=== PATIENT | female | born 1970 | race Caucasian/White ===

== ENCOUNTER 2017-09-28 13:06 | Emergency (ER) | payer SELFPAY ==
[2017-09-28 13:06] VITALS: BP 107/47; PULSE 76; RESP 16; TEMP 36.5; BMI 24.3
[2017-09-28 14:11] VITALS: BP 107/47; PULSE 76; RESP 18; TEMP 36.5; O2SAT 99; BMI 24.3
--- NOTE | 2017-09-28 14:13 | XR_ITS ---
XR wrist RT min 3V HISTORY: Wrist pain ITS.REASON: WC-NO INJURY/PAIN ORDERING PHYSICIAN: Josseline Quinn PATIENT AGE: 47 years COMPARISON: None FINDINGS: No fracture or dislocation. No lytic or blastic change. There is normal mineralization.. The joint spaces are well-preserved. No significant degenerative/arthritic changes. No erosive changes evident.. IMPRESSION: Negative wrist
--- NOTE | 2017-09-28 14:44 | HMH.EDUTC ---
[facility] [place] Impression: Right wrist sprain Qualifiers: Encounter type: initial encounter Qualified Code(s): S63.501A - Unspecified sprain of right wrist, initial encounter Disposition: Home, Self-Care Condition on Discharge: Good Instructions: DI for Wrist Sprain Additional Instructions: * move as tolerated but no lifting, pulling, pushing. See work restrictions * Rest * ice 15-20 mins 3-4 times a day * wrist splint for support and swelling unless in shower. Be sure not too tight but not too loose either * Elevate as discussed as much as possible to help reduce swelling and therefore, pain * Ibuprofen every 6 hours as needed for pain and inflammation. If you need something more, you can take tylenol every 4 hours as needed as long as your primary care provider has told you it is ok to take both. Need to follow up with primary care in 3-5 days for reevaluation of pain, mobility and work restrictions. we have provided you with a list of providers accepting patients. I would encourage you find a new primary care provider and make an appt ALBERT as it can take weeks to get a new patient appointment. In the meantime, follow up in the clinic or ER for new, worsening or persistent symptoms. Time of Disposition: 15:39 (see workman's comp restrictions/form) Medical Decision Making Vital Signs: 09/28/17 13:06 09/28/17 14:11 Temperature 97.7 F 97.7 F Temperature Source Oral Temporal Artery Scan Pulse Rate [Left Brachial] 76 76 Respiratory Rate 16 18 Blood Pressure [Left Arm] 107/47 107/47 Blood Pressure Mean [Left Arm] 67 67 Blood Pressure Source [Left Arm] Automatic Cuff Manual Cuff/ Doppler Blood Pressure Position [Left Arm] Sitting Sitting 02 Sat by Pulse Oximetry 99 Oxygen Delivery Method Room Air - Radiology Data #1 Image(s): Wrist Image Reviewed: Yes I reviewed the patient's radiology image w/the ED provider Preliminary Findings: Normal/NAD Rvwd w/ Dr. sena Gaitan Inquiry Pt receiving controlled substance: No [facility] [place] - General Stated complaint: WC [id number] right wrist Time Seen by Provider: 09/28/17 14:44 Mode of Arrival: Family Vehicle Source of Information: Patient Limitations: No Limitations Description of Symptoms (Recalled from Triage Doc. by RN): pt states that she noticed a bruise on her right wrist yesterday at work. pt does not recall what happened. HEENT Symptoms (Recalled from RN notes): No Resp Symptoms (Recalled from RN notes): No Skin Symptoms (Recalled from RN notes): No MS Symptoms (Recalled from RN notes): Yes (right wrist) Functional Status (Recalled from RN notes): na - History of Present Illness Provider Complaint: c/o right wrist pain. Doesn't know how it happened. Noticed bruise to right posterior wrist yesterday soon after getting to work. Didn't think anything of it. Always hitting it on something or getting a bruise somewhere . throughout the shift, pain started and by 2am, had to leave because no longer able to work through pain. Last night when pain severe, barely able to hold pack of smokes . pain improved right now and full ROM all fingers. No treatment but doesn't think she can work tonight due to pain still present. - Worker's Comp Is this a Worker's Comp case?: No H History I have reviewed the patient's past medical history: Yes (denies PMHx) Medical History: Denies:: Cancer, Diabetes Mellitus Type 1, Diabetes Mellitus Type 2, MRSA Amputation: No Fractures: No - Social History Smoking Status: Current every day smoker Tobacco Type: cigarettes Alcohol Intake: never - Psychiatric History Expresses thoughts of harming self/others: None Suicide Plan Description: No Plan ROS Obtained: Yes Systems reviewed as appropriate & no additional complaints - Constitutional Constitutional: Denies fatigue, Denies fever(s) - Musculoskeletal Musculoskeletal: Reports as per HPI, Denies joint swelling, Denies muscle cramps, Reports radiating pain into l
[2017-09-28 15:41] VITALS: BP 105/87; PULSE 74; RESP 18; TEMP 36.6; O2SAT 99
== END 2017-09-28 15:44 | disposition home or self-care (01) ==
PROVIDERS: Emergency Provider Nurse Practitioner Family
DX: S63.501A Unspecified sprain of right wrist, initial encounter (principal); F17.210 Nicotine dependence, cigarettes, uncomplicated
CPT/HCPCS: 73110; 99202

== ENCOUNTER 2017-10-28 20:06 | Emergency (ER) | payer OTHER, SELFPAY ==
[2017-10-28 20:24] VITALS: BP 125/65; PULSE 89; RESP 20; TEMP 37.2; O2SAT 98; BMI 23.8
--- NOTE | 2017-10-28 20:44 | HMH.EDUTC ---
[facility] [place] Disposition Clinical Impression: Foot injury Qualifiers: Encounter type: subsequent encounter Laterality: left Qualified Code(s): S99.922D - Unspecified injury of left foot, subsequent encounter Disposition: Home, Self-Care Condition on Discharge: Good Instructions: Easy Bruising (Alternative Therapy), DI for Foot Pain Additional Instructions: Follow up with Orthopedic as advised Return if needed *RICE, Rest the extremity, Ice 15-20 minutes 3-4 times daily, Compress- wear the roc wrap as discussed as much as possible to help reduce swelling and pain, Elevate the extremity when at rest *Roc wrap is for support and help control swelling, use it except in the shower. Be sure that is not to tight but not to loose either *Elevate when resting *Ibuprofen 600-800mg every 6-8 hours as needed for pain an inflammation. If need something more can take Tylenol in between doses of Ibuprofen to help Immediately follow up for new or worsening of symptoms, or no noticeable improvement over the next 3-5 days Referrals: Dusty Salcido MD [Staff Physician] - Renee Coronado DPM [Physician] - Edmar Arvizu MD [Staff Physician] - Time of Disposition: 21:14 Medical Decision Making - Medical Records Medical records reviewed: Yes: I reviewed the patient's medical records. - Arnie Inquiry Pt receiving controlled substance: No Arnie was queried for this patient: No Vital Signs: 10/28/17 20:24 Temperature 99 F Temperature Source Temporal Artery Scan Pulse Rate [Right] 89 Respiratory Rate 20 Blood Pressure [Right Arm] 125/65 Blood Pressure Mean [Right Arm] 85 Blood Pressure Source [Right Arm] Automatic Cuff Blood Pressure Position [Right Arm] Sitting 02 Sat by Pulse Oximetry 98 Oxygen Delivery Method Room Air - Reevaluation(s) Time: 21:07 Reevaluation #1: Patient educated that she needed to follow up with Orhtopedics as previously informed Advised her that we was unable to look at disk but would repeat xray so that we could look at her foot/injury Patient refused states that she was concerned where she just had xray done earlier today that insurance wouldn't cover it and she would be responsible that she was just worried where she had to wait to Tuesday to be seen by Orthopedics. Patient foot roc wrapped and patient was given other names to local Orthopedic Physicians to call to see if they would be able to see her sooner Again offered to repeat xray and patient refused [facility] [place] HPI - General Stated complaint: WC [id number] @1930 Injured L Foot Time Seen by Provider: 10/28/17 20:35 Mode of Arrival: Ambulatory Source of Information: Patient Limitations: No Limitations Description of Symptoms (Recalled from Triage Doc. by RN): LEFT FOOT INJURY , WANTS XRAYS READ HEENT Symptoms (Recalled from RN notes): No Resp Symptoms (Recalled from RN notes): No Skin Symptoms (Recalled from RN notes): No MS Symptoms (Recalled from RN notes): Yes Functional Status (Recalled from RN notes): N - History of Present Illness Provider Complaint: Patient states that she dropped heavy piece of equiptment on her foot at work earlier today and they sent her to be checked by a doctor in [place] States that they did xray and gave her a disk and told her to follow up with another orthopedic doctor in [place] later today State that she went to that appointment and they told her she would have to pay $300 up front and she did not have the money so she came here to see if there was an orthopedic doctor here in the [facility] that could see her - Related Data Allergies Allergy/AdvReac Type Severity Reaction Status Date / Time No Known Allergies Allergy Verified 10/28/17 20:27 - Worker's Comp Is this a Worker's Comp case?: No [facility] History I have reviewed the patient's past medical history: Yes Medical History: Denies:: Cancer, Diabetes Mellitus Type 1, Diabetes Mellitus Type 2, MRSA Amputation: No Fractures: No - Social History Smoking Status
--- NOTE | 2017-10-28 20:48 | ED_ITS ---
[facility] [place]: Foot injury Qualifiers: Encounter type: subsequent encounter Laterality: left Qualified Code(s): S99.922D - Unspecified injury of left foot, subsequent encounter Disposition: Home, Self-Care Condition on Discharge: Good Instructions: Easy Bruising (Alternative Therapy), DI for Foot Pain Additional Instructions: Follow up with Orthopedic as advised Return if needed *RICE, Rest the extremity, Ice 15-20 minutes 3-4 times daily, Compress- wear the roc wrap as discussed as much as possible to help reduce swelling and pain, Elevate the extremity when at rest *Roc wrap is for support and help control swelling, use it except in the shower. Be sure that is not to tight but not to loose either *Elevate when resting *Ibuprofen 600-800mg every 6-8 hours as needed for pain an inflammation. If need something more can take Tylenol in between doses of Ibuprofen to help Immediately follow up for new or worsening of symptoms, or no noticeable improvement over the next 3-5 days Referrals: Dusty Salcido MD [Staff Physician] - Renee Coronado DPM [Physician] - Edmar Arvizu MD [Staff Physician] - Time of Disposition: 21:14 Medical Decision Making - Medical Records Medical records reviewed: Yes: I reviewed the patient's medical records. - Arnie Inquiry Pt receiving controlled substance: No Arnie was queried for this patient: No Vital Signs: 10/28/17 20:24 Temperature 99 F Temperature Source Temporal Artery Scan Pulse Rate [Right] 89 Respiratory Rate 20 Blood Pressure [Right Arm] 125/65 Blood Pressure Mean [Right Arm] 85 Blood Pressure Source [Right Arm] Automatic Cuff Blood Pressure Position [Right Arm] Sitting 02 Sat by Pulse Oximetry 98 Oxygen Delivery Method Room Air - Reevaluation(s) Time: 21:07 Reevaluation #1: Patient educated that she needed to follow up with Orhtopedics as previously informed Advised her that we was unable to look at disk but would repeat xray so that we could look at her foot/injury Patient refused states that she was concerned where she just had xray done earlier today that insurance wouldn't cover it and she would be responsible that she was just worried where she had to wait to Tuesday to be seen by Orthopedics. Patient foot roc wrapped and patient was given other names to local Orthopedic Physicians to call to see if they would be able to see her sooner Again offered to repeat xray and patient refused [facility] [place] - General Stated complaint: WC [id number] @1930 Injured L Foot Time Seen by Provider: 10/28/17 20:35 Mode of Arrival: Ambulatory Source of Information: Patient Limitations: No Limitations Description of Symptoms (Recalled from Triage Doc. by RN): LEFT FOOT INJURY , WANTS XRAYS READ HEENT Symptoms (Recalled from RN notes): No Resp Symptoms (Recalled from RN notes): No Skin Symptoms (Recalled from RN notes): No MS Symptoms (Recalled from RN notes): Yes Functional Status (Recalled from RN notes): N - History of Present Illness Provider Complaint: Patient states that she dropped heavy piece of equiptment on her foot at work earlier today and they sent her to be checked by a doctor in [place] States that they did xray and gave her a disk and told her to follow up with another orthopedic doctor in [place] later today State that she went to that appointment and they told her she would have to pay $300 up front and she did not have the money so she came here to see if there was an orthopedic doctor here in [place]
[2017-10-28 21:05] VITALS: BP 125/65; PULSE 88; RESP 20; TEMP 37.2
== END 2017-10-28 21:25 | disposition home or self-care (01) ==
PROVIDERS: Emergency Provider Nurse Practitioner
DX: S99.922A Unspecified injury of left foot, initial encounter (principal); W22.8XXA Striking against or struck by other objects, initial encounter; Y92.69 Other specified industrial and construction area as the place of occurrence of the external cause; Y99.0 Civilian activity done for income or pay
CPT/HCPCS: 99201

== ENCOUNTER 2019-11-24 17:51 | Emergency (ER) | payer MEDICAID, SELFPAY ==
[2019-11-24 18:10] VITALS: BP 132/89; PULSE 98; RESP 20; TEMP 36.6; O2SAT 99; BMI 24.6
--- NOTE | 2019-11-24 18:18 | HMH.EDUTC ---
[facility] [place] Clinical Impression: Influenza Disposition: Home, Self-Care Condition on Discharge: Good Instructions: How to Avoid a Cold or Flu, Influenza, DI for Influenza -- Adult, Preventing the Spread of Coronavirus Discharge Instructions Additional Instructions: ? Start Tamiflu today if you are going to take it. Discussed risk and possible benefits. ? Lots of rest ? Increase Fluids water, Gatorade, powerade, pedialyte,if /toddler/child ? Alternate Tylenol and / or ibuprofen as discussed for fever, aches, chills Follow up IMMEDIATELY with your family doctor for new or worsening Symptoms OR no noticeable improvement over the next 48-72 hours, 911 for difficulty or breathing ? You or your child area contagious until no fever, aches, chills for 24 hours with medication for symptoms ? Help Prevent the spread of influenza: ? Wash your hands often. Use soap and water. Wash your hands after you use the bathroom, change a child's diapers, or sneeze. Wash your hands before you prepare or eat food. Use gel hand cleanser that has 60% alcohol, when soap and water are not available. Do not touch your eyes, nose, or mouth unless you have washed your hands first. ? Cover your mouth when you sneeze or cough. Cough into a tissue or the bend of your arm. If you use a tissue, throw it away immediately and wash your hands. ? Clean shared items with a germ-killing wet cleaner machine. Clean table surfaces, doorknobs, and light switches. Do not share towels, silverware, and dishes with people who are sick. Wash bed sheets, towels, silverware, and dishes with soap and water. ? Wear a mask over your mouth and nose if you are sick. The face mask may help protect others from becoming infected with the flu. Wear the mask when in common areas of your home or if you seek care with a healthcare provider. ? Stay away from others if you are sick. Stay at home until 24 hours after your fever and symptoms are gone. Prescriptions: Oseltamivir Phosphate [Tamiflu 75mg Capsule] 75 mg PO BID #10 cap Prescription Printed Referrals: Provider,Referral, MD [Primary Care Provider] - As needed Forms: Work/School Release Time of Disposition: 18:38 Medical Decision Making - Arnie Inquiry Pt receiving controlled substance: No Arnie was queried for this patient: No Vital Signs: 11/24/19 18:10 Temperature 97.9 F Temperature Source Oral Pulse Rate [Right Brachial] 98 H Respiratory Rate 20 Blood Pressure [Right Arm] 132/89 Blood Pressure Mean [Right Arm] 103 Blood Pressure Source [Right Arm] Automatic Cuff Blood Pressure Position [Right Arm] Sitting 02 Sat by Pulse Oximetry 99 Oxygen Delivery Method Room Air - Lab Data Lab results reviewed: Yes: I reviewed the patient's lab results. - Reevaluation(s) Time: 18:39 Reevaluation #1: Discussed with patient that she is positive for influenza A, this also has symptoms similar to COVID19. Recommended that she go home and self isolate and monitor symptoms and follow up immediately if any worsening of symptoms such as shortness of breath, dry cough, sore throat etc Patient verbalized understanding [facility] [place] HPI - General Stated complaint: to be tested for COVID-19 Time Seen by Provider: 11/24/19 18:18 Mode of Arrival: Family Vehicle Source of Information: Patient Limitations: No Limitations Description of Symptoms (Recalled from Triage Doc. by RN): c/o possible fever. Wants to be tested for covid 19 HEENT Symptoms (Recalled from RN notes): No Resp Symptoms (Recalled from RN notes): Yes Skin Symptoms (Recalled from RN notes): No MS Symptoms (Recalled from RN notes): No Functional Status (Recalled from RN notes): n/a - History of Present Illness Provider Complaint: Patient states that son had a fever about 3-4 days ago and she felt a little flush yesterday States that she didnt have anything at home to check her temp States that she hasnt had any sore throat but her nose was runny earlier today States that she is an ev
[2019-11-24 18:43] LABS: UTC Influenza A Antigen Positive (Negative); UTC Influenza B Antigen Negative (Negative); UTC Strep Screen (Rapid) Negative (Negative)
[2019-11-24 19:00] VITALS: BP 132/89; PULSE 98; RESP 20; TEMP 36.6; O2SAT 99
== END 2019-11-24 19:05 | disposition home or self-care (01) ==
PROVIDERS: Emergency Provider Nurse Practitioner
DX: J11.1 Influenza due to unidentified influenza virus with other respiratory manifestations (principal); Z03.89 Encounter for observation for other suspected diseases and conditions ruled out; Z72.0 Tobacco use
CPT/HCPCS: 87804; 87880; 99202

== ENCOUNTER 2020-09-10 05:45 | Emergency (ER) | payer SELFPAY ==
[2020-09-10 05:46] VITALS: BP 112/69; PULSE 104; RESP 16; TEMP 37.4; O2SAT 98; BMI 25.8
[2020-09-10 06:26] VITALS: BP 119/61; PULSE 99; RESP 16; O2SAT 99
[2020-09-10 06:27] LABS: Strep Scrn Group A (Rapid) Negative (Negative)
--- NOTE | 2020-09-10 06:38 | HMH.EDURI ---
ED Disposition Clinical Impression: Pharyngitis Qualifiers: Pharyngitis/tonsillitis etiology: unspecified etiology Qualified Code(s): J02.9 - Acute pharyngitis, unspecified Disposition: Home, Self-Care Condition on Discharge: Good Instructions: DI for Pharyngitis/Tonsillopharyngitis -- Adult Additional Instructions: gargle and fluids and use meds and see pcp or ent in the next few days Prescriptions: cephALEXin [cephALEXin 500mg capsule*] 500 mg PO Q6H #28 cap Transmission Status: Pending to [facility] predniSONE [Prednisone 20mg Tab] 20 mg PO BID #10 tab [facility]: [facility] Referrals: PCP,No [Primary Care Provider] - - Critical Care Critical Care Time: No Attestation: On 09/10/20, the high probability of a clinically significant, sudden or life threatening deterioration of the following system(s) required my full and direct attention, intervention and personal management. The time I documented below is in addition to time spent performing reported procedures but includes the following listed in this critical care notation. Medical Decision Making - Medical Records Medical records reviewed: Yes: I reviewed the patient's medical records. - Arnie Inquiry Pt receiving controlled substance: No Vital Signs: 09/10/20 05:46 09/10/20 06:26 09/10/20 07:00 Temperature 99.3 F Temperature Source Oral Pulse Rate [Left Radial] 104 H 99 H 90 Respiratory Rate 16 16 17 Blood Pressure [Right Arm] 112/69 119/61 116/47 L Blood Pressure Mean [Right Arm] 83 80 70 Blood Pressure Source [Right Arm] Automatic Cuff Automatic Cuff Automatic Cuff Blood Pressure Position [Right Arm] Sitting Sitting Supine 02 Sat by Pulse Oximetry 98 99 97 Oxygen Delivery Method Room Air Room Air Room Air - Lab Data Lab results reviewed: Yes: I reviewed the patient's lab results. Lab Results 09/10/20 05:52: Group A Strep Rapid Negative 09/10/20 06:45: WBC 23.4 H*, RBC 4.74, Hgb 15.0, Hct 46.0, MCV 97.0, MCH 31.6 H, MCHC 32.5, RDW 16.3, Plt Count 298, MPV 8.3, Neut % (Auto) 85.5 H, Lymph % (Auto) 6.3 L, [place] % (Auto) 7.2, Eos % (Auto) 0.7, Baso % (Auto) 0.3, Neut # (Auto) 20.0 H, Lymph # (Auto) 1.5, [place] # (Auto) 1.7 H, Eos # (Auto) 0.2, Baso # (Auto) 0.1 09/10/20 06:45: Sodium 139, Potassium 4.0, Chloride 109 H, Carbon Dioxide 27, Anion Gap 7.0, BUN 8, Creatinine 0.90, Estimated Creat Clear 93, Estimated GFR 67, Est GFR ( Amer) 81, Glucose 139 H, Calcium 9.3 Result diagrams: 09/10/20 06:45 09/10/20 06:45 Orders (Tests/Meds): ED MEDICATIONS Generic Name Dose Route Start Last Admin Trade Name Freq PRN Reason Stop Dose Admin Sodium Chloride 1,000 mls @ 999 mls/hr 09/10/20 06:45 09/10/20 06:45 Sod Chlor 0.9% 1000ml Bag IV 09/10/20 07:45 999 mls/hr .Q1H1M [place] Administration Ceftriaxone Sodium 1 gm/ 50 mls @ 100 mls/hr 09/10/20 06:45 09/10/20 06:45 Sodium Chloride IV 09/24/20 06:44 100 mls/hr Q24H [place] Administration Protocol Discontinued Medications Generic Name Dose Route Start Last Admin Trade Name Freq PRN Reason Stop Dose Admin Ibuprofen 600 mg 09/10/20 06:17 09/10/20 06:18 Ibuprofen 200mg/10ml Susp Udc PO 09/10/20 06:18 600 mg ONCE ONE Administration Ketorolac Tromethamine 30 mg 09/10/20 06:43 09/10/20 06:45 Ketorolac 30mg/Ml Vial IV 09/10/20 06:44 30 mg ONCE ONE Administration Methylprednisolone Sodium Succinate 125 mg 09/10/20 06:43 09/10/20 06:45 Methylprednisolone Sod Succ 125mg Vial IV 09/10/20 06:44 125 mg ONCE ONE Administration ORDERS Category Date Time Status Complete Blood Count Auto Diff Stat Lab 09/10/20 06:45 Results Strep Screen Confirmation Stat Micro 09/10/20 05:52 Received - Reevaluation(s) Time: 07:24 Reevaluation #1: improved Medical Decision Narrative: no surgical abscess at this time - will use meds and fluids and gargle URI/Sore Throat HPI - General C
[2020-09-10 07:00] VITALS: BP 116/47; PULSE 90; RESP 17; O2SAT 97
[2020-09-10 07:08] LABS: Chloride 109 mmol/L (98-107); Sodium 139 mmol/L (136-145)
[2020-09-10 07:11] LABS: Blood Urea Nitrogen 8 mg/dl (7-17); Carbon Dioxide 27 mmol/L (22.0-30.0); Creatinine Clearance Estimated 93 mL/min (50-200); Estimated Glomerular Filt Rate 67 ml/min (>60); GFR (African American) 81 ML/MIN (>60)
[2020-09-10 07:12] LABS: Calcium 9.3 mg/dl (8.4-10.2); Glucose 139 mg/dl (74-100)
[2020-09-10 07:16] LABS: Basophils # 0.1 K/mm3 (0-0.2); Basophils % 0.3 % (0.1-2.0); Eosinophils # 0.2 K/mm3 (0.0-0.4); Eosinophils % 0.7 % (0.1-12.0); Lymphocytes # 1.5 K/mm3 (0.7-4.5); Lymphocytes % 6.3 % (10-50); Mean Corpuscular HGB Conc 32.5 g/dL (31.8-35.4); Mean Corpuscular Hemoglobin 31.6 pg (27.0-31.2); Mean Platelet Volume 8.3 fl (7.4-10.4); Monocytes # 1.7 K/mm3 (0.1-1.0); Monocytes % 7.2 % (1.7-9.3); Neutrophils % 85.5 % (37.0-80.0); Platelet Count 298 K/mm3 (142-424); Red Blood Count 4.74 M/mm3 (4.20-5.40); Red Cell Distribution Width 16.3 % (11.5-17.5); White Blood Count 23.4 K/mm3 (4.8-10.8)
[2020-09-10 07:22] LABS: MANUAL DIFFERENTIAL MANUAL DIFFERENTIAL (MANUAL DIFF)
[2020-09-10 07:26] LABS: Lymphocytes % 6 % (10-50); Monocytes % 10 % (2-9); Neutrophils % 84 % (42-76); Total Cells Counted 100
[2020-09-10 07:27] LABS: Platelet Estimate Normal; RBC Morphology Normal
[2020-09-10 08:15] VITALS: BP 97/47; PULSE 101; RESP 18; TEMP 37.4; O2SAT 97
== END 2020-09-10 08:15 | disposition home or self-care (01) ==
PROVIDERS: Emergency Provider Emergency Medicine
DX: J02.9 Acute pharyngitis, unspecified (principal)
CPT/HCPCS: 80048; 85007; 85025; 87430; 96365; 96375; 99283

== ENCOUNTER 2021-05-19 12:03 | Emergency (ER) | payer SELFPAY ==
[2021-05-19 13:50] VITALS: BP 114/61; PULSE 72; RESP 19; TEMP 37; O2SAT 99; BMI 25.8
--- NOTE | 2021-05-19 14:25 | HMH.EDUTC ---
[facility] [place] Disposition Clinical Impression: Low back pain Qualifiers: Chronicity: unspecified Back pain laterality: midline Sciatica presence: without sciatica Qualified Code(s): M54.50 - Low back pain, unspecified UTI (urinary tract infection) Qualifiers: Urinary tract infection type: site unspecified Hematuria presence: without hematuria Qualified Code(s): N39.0 - Urinary tract infection, site not specified Disposition: Home, Self-Care Condition on Discharge: Good Instructions: DI for Low Back Pain, Low Back Pain, Urinary Tract Infection, Methocarbamol Additional Instructions: *Increase fluids. Water not Soda or Tea *Start antibiotic immediately and be sure to take as ordered for the FULL length of time although you should start to see improvement over the next 48 hours *Be SURE to follow up anytime for new or worsening symptoms with your family doctor. AND in 48 hours for urine culture results with your family doctor, if you do not have a doctor then you may call back to the [facility] for urine culture results and further treatment. We do recommend that you choose and establish care with a Primary Care Physician. AND follow up with them in 10-14 days to repeat UA to ensure infection is resolved and blood no longer present *Be sure to let your PCP know that we sent urine cultures from the [facility] so they can follow up to ensure that you area the on the correct antibiotic Call your doctor office and make appointment for 48 hours (2 days from today) to follow up and get the results of your urine culture and further treatment *Ibuprofen andrew 6 hours with meal as needed for pain/inflammation *Not additional anti-inflammatory like motrin, aleve, advil with the above amount of ibuprofen. You can still take Tylenol every 4 hours as needed if you need something else for pain *Ice 20 minutes every 2 hours for the first 48 hours after the initial injury followed by moist heat every 20 minutes 3-4 times a day to affected area *Muscle relaxer every 12 hours as needed for muscle spasms but remember, it WILL cause drowsiness You cannot take it and drive, operate machinery or care for small children. *Keep this area active, no movement leads to more stiffness, However take it easy and avoid heavy lifting pushing or pulling *Follow up with you family doctor if no improvement for further treatment Prescriptions: cephALEXin [Cephalexin 500mg Tab] 500 mg PO BID 5 Days #10 tab Transmission Status: Pending to [facility] methocarbamoL [Methocarbamol 500mg Tablet] 500 mg PO BID PRN 30 Days #60 tab PRN Reason: Muscle Spasm Transmission Status: Pending to [facility] Referrals: Provider,Referral, MD [Primary Care Provider] - As needed Forms: Work/School Release Time of Disposition: 14:43 Medical Decision Making - Arnie Inquiry Pt receiving controlled substance: No Arnie was queried for this patient: No Vital Signs: 05/19/21 13:50 Temperature 98.6 F Temperature Source Oral Pulse Rate [Left Radial] 72 Respiratory Rate 19 Blood Pressure [Left Arm] 114/61 Blood Pressure Mean [Left Arm] 78 Blood Pressure Source [Left Arm] Automatic Cuff Blood Pressure Position [Left Arm] Sitting 02 Sat by Pulse Oximetry 99 Oxygen Delivery Method Room Air - Lab Data Lab results reviewed: Yes: I reviewed the patient's lab results. Orders (Tests/Meds): ORDERS Category Date Time Status Urine Culture Stat Micro 05/19/21 13:58 Received [facility] [place] HPI - General Stated complaint: back pain, no accident Time Seen by Provider: 05/19/21 14:25 Mode of Arrival: Ambulatory Source of Information: Patient Limitations: No Limitations Description of Symptoms (Recalled from Triage Doc. by RN): C/O lower back pain. No known injury HEENT Symptoms (Recalled from RN notes): No Resp Symptoms (Recalled from RN notes): No Skin Symptoms (Recalled from RN notes): No MS Symptoms (Recalled from RN notes): Yes (lower back pain) Functional Status (Recalled from RN
[2021-05-19 14:56] VITALS: BP 114/61; PULSE 72; RESP 19; TEMP 37; O2SAT 99
[2021-05-19 21:06] LABS: Apearance,Urine Clear (Clear); Bilirubin,Urine Negative (Negative); Blood, Urine Negative (Negative); Color,Urine Yellow (Yellow); Glucose,Urine (UA) Negative (Negative); Ketones,Urine Negative (Negative); PH,Urine 5.5 (5.0-8.5); Protein,Urine Negative (Negative); Specific Gravity, Urine 1.015 (1.005-1.030); UTC Leukocyte Esterase,Urine Trace (Negative); UTC Nitrate,Urine Negative (Negative); Urobilinogen,Urine 0.2 EU/dl (0.2)
== END 2021-05-19 14:57 | disposition home or self-care (01) ==
PROVIDERS: Emergency Provider Nurse Practitioner
DX: M54.50 Low back pain, unspecified (principal); N39.0 Urinary tract infection, site not specified; F17.210 Nicotine dependence, cigarettes, uncomplicated
CPT/HCPCS: 81003; 87086; 99202; G0463